=== PATIENT | male | born 1990 | race Caucasian/White ===

== ENCOUNTER 2017-10-07 20:26 | Emergency (ER) | payer SELFPAY | END 2017-10-07 21:27 | disposition home or self-care (01) | LOC: M ED 20:26 | DX: F32.9 Major depressive disorder, single episode, unspecified (principal); F14.20 Cocaine dependence, uncomplicated | CPT/HCPCS: 99282 ==

== ENCOUNTER 2018-06-28 18:48 | Emergency (ER) | payer SELFPAY ==
[~2018-06-28] VITALS: Ht 170.2 cm; Wt 68.2 kg
[2018-06-28] MEDS ORDERED: NICOTINE 21MG/24HR 1 EA TRANSDERMAL TD ONE (19:30)
[2018-06-28 19:35] LABS: HEMATOCRIT 43.4 % (42.0-52.0); HEMOGLOBIN 15.1 g/dl (13.5-17.5); MEAN CORPUSCULAR HEMOGLOBIN 33.5 pg (27.0-33.0); MEAN CORPUSCULAR HGB CONC 34.8 g/dl (32.0-36.5); MEAN CORPUSCULAR VOLUME 96.2 fl (80.0-96.0); PLATELET COUNT, AUTOMATED 355 10^3/uL (150-450); RED BLOOD COUNT 4.51 10^6/uL (4.30-6.10); WHITE BLOOD COUNT 12.3 10^3/uL (4.0-10.0)
[2018-06-28 19:58] LABS: ACETAMINOPHEN LEVEL < 2.0 UG/ML (10.0-30.0); ALBUMIN 4.6 GM/DL (3.2-5.2); ALT/SGPT 64 U/L (12-78); BILIRUBIN,DIRECT < 0.1 MG/DL (0.0-0.2); BILIRUBIN,TOTAL 0.3 MG/DL (0.2-1.0); BLOOD UREA NITROGEN 8 MG/DL (7-18); CALCIUM LEVEL 8.9 MG/DL (8.5-10.1); CARBON DIOXIDE LEVEL 25 MEQ/L (21-32); CHLORIDE LEVEL 107 MEQ/L (98-107); CREATININE FOR GFR 1.04 MG/DL (0.70-1.30); GLOMERULAR FILTRATION RATE > 60.0 (>60); GLUCOSE, FASTING 80 MG/DL (70-100); POTASSIUM SERUM 3.9 MEQ/L (3.5-5.1); SALICYLATE LEVEL < 1.7 MG/DL (5.0-30.0); SODIUM LEVEL 141 MEQ/L (136-145); THYROID STIMULATING HORMONE 0.704 uIU/ML (0.358-3.740); TOTAL PROTEIN 7.9 GM/DL (6.4-8.2)
[2018-06-28 20:00] LABS: AMPHETAMINES LEVEL URINE NEGATIVE (NEGATIVE); BARBITURATES URINE NEGATIVE (NEGATIVE); BENZODIAZEPINES URINE NEGATIVE (NEGATIVE); CANNABINOIDS URINE NEGATIVE (NEGATIVE); COCAINE METABOLITE URINE POSITIVE (NEGATIVE); METHADONE URINE NEGATIVE (NEGATIVE); OPIATES URINE NEGATIVE (NEGATIVE); PHENCYCLIDINE URINE NEGATIVE (NEGATIVE)
[2018-06-28] MEDS ORDERED: OXAZEPAM 15 MG CAP PO ONE (21:00)
[2018-06-29 07:13] VITALS: BP 136/91
== END 2018-06-29 07:14 | disposition home or self-care (01) ==
LOC: M ED 18:48
DX: F10.129 Alcohol abuse with intoxication, unspecified (principal); F11.10 Opioid abuse, uncomplicated; F33.9 Major depressive disorder, recurrent, unspecified
CPT/HCPCS: 36415; 80048; 80076; 80307; 84443; 85027; 99284; G0480